=== PATIENT | female | born 1945 | race African-American/Black ===

== ENCOUNTER 2018-12-04 17:04 | Emergency (ER) | payer MEDICARE, MEDICAID ==
[2018-12-04 18:27] LABS: #Eosinphils 0.2 thou/uL (0.0-0.7); #Lymphocytes 2.4 thou/uL (1.20-3.40); #Monocytes 0.7 thou/uL (0.11-0.59); #Neutrophils 5.4 thou/uL (1.40-6.50); %Basophils 0.3 % (0.0-1.0); %Eosinophils 2.7 % (0.0-10.0); %Lymphocytes 27.1 % (21.0-51.0); %Monocytes 7.7 % (0.0-10.0); %Neutrophils 62.1 % (42.0-75.0); Hemoglobin 11.5 g/dL (12.0-16.0); Mean Corpuscular Hemoglobin 29.8 pg (27.0-31.0); Mean Corpuscular Volume 90.2 fL (78.0-98.0); Mean Platelet Volume 9.5 fL (7.4-10.4); Platelet Count 251 thou/uL (130-400); RBC Distribution Width 12.5 % (11.5-14.5); Red Blood Cell (RBC) Count 3.86 mill/uL (4.20-5.40); White Blood Cell (WBC) Count 8.7 thou/uL (4.8-10.8)
[2018-12-04 19:00] LABS: ALT (SGPT) 10 U/L (8-55); AST (SGOT) 14 U/L (5-34); Albumin 3.6 g/dL (3.4-4.8); Alkaline Phosphatase 91 U/L (40-150); Anion Gap 13 mmol/L (10-20); BUN (Urea Nitrogen) 13 mg/dL (9.8-20.1); Bilirubin, Total 0.4 mg/dL (0.2-1.2); Calc. Creatinine Clearance 0 mL/min (70-130); Calcium 9.4 mg/dL (7.8-10.44); Carbon Dioxide 24 mmol/L (23-31); Chloride 109 mmol/L (98-107); Estimated GFR-MDRD Greater than 90; Globulin 4.7 g/dL (2.4-3.5); Glucose 85 mg/dL (83-110); Potassium 3.3 mmol/L (3.5-5.1); Protein, Total 8.3 g/dL (6.0-8.3); Sodium 143 mmol/L (136-145)
--- NOTE | 2018-12-04 20:03 | RAD ---
CHEST ONE VIEW PORTABLE: 12/04/18 HISTORY: 73-year-old female with history of cough, cold, congestion, subjective fever, history of dementia. Heart size is within normal limits. There is some chronic changes in the right upper lobe as well as bilateral old granulomatous disease. There are some horizontal linear and parenchymal changes in the left base with some left hemidiaphragm elevation more prominent than on prior study raising concern f or subsegmental atelectasis or minimal left lower lobe pneumonia/pneumonitis. IMPRESSION: Horizontal linear and parenchymal changes in the left base having more the appearance of subsegmental atelectasis or mild pneumonitis. Chronic changes bilaterally. Atherosclerosis of the aorta with ecta darleen. POS: [facility]
== END 2018-12-04 19:32 | disposition home or self-care (01) ==
LOC: ERS 17:04
DX: J18.1 Lobar pneumonia, unspecified organism (principal); I10 Essential (primary) hypertension; J42 Unspecified chronic bronchitis; F03.90 Unspecified dementia, unspecified severity, without behavioral disturbance, psychotic disturbance, mood disturbance, and anxiety; F32.9 Major depressive disorder, single episode, unspecified; F17.210 Nicotine dependence, cigarettes, uncomplicated; Z79.899 Other long term (current) drug therapy
CPT/HCPCS: 36415; 71045; 80053; 85025; 87804

== ENCOUNTER 2019-08-13 10:26 | Inpatient (IN) | payer MEDICARE, MEDICAID ==
--- NOTE | 2019-08-13 11:06 | RAD ---
PORTABLE CHEST 1 VIEW: Date: 08/13/19 Time: 1041 hours HISTORY: Altered mental status. FINDINGS: Comparison made with exam of 12/04/18. The patient is rotated. The heart size is normal. The aorta is tortuous. No lobar consolidation, pneu mothoraces, or pleural effusions are seen. There is evidence of old granulomatous disease. IMPRESSION: No acute process. POS: [facility]
--- NOTE | 2019-08-13 11:19 | CT ---
CT HEAD WITHOUT CONTRAST: Date: 08/13/19 Axial tomograms obtained without IV enhancement. INDICATION: Mental status change. Comparison made to CT head of 05/13/17. FINDINGS: Moderate cortical volume loss is unchanged in appearance. Moderately severe chronic ischemic white ma tter changes again noted. Old infarct in the left frontal lobe with encephalomalacia is stable from t he prior exam. Evidence of old infarct in the inferior right cerebellum again noted. Evidence of lacu ralph infarction in left cerebellum. No evidence of acute cortical infarct. No mass or hemorrhage appar ent. Ischemic changes in the right basal ganglia extending to the subcortical insular cortex was present p reviously. IMPRESSION: Moderate to severe ischemic changes with old left frontal lobe infarct. No acute process apparent. POS: [facility]
[2019-08-13 11:44] LABS: #Eosinphils 0.1 thou/uL (0.0-0.7); #Lymphocytes 1.7 thou/uL (1.20-3.40); #Monocytes 0.3 thou/uL (0.11-0.59); #Neutrophils 3.2 thou/uL (1.40-6.50); %Basophils 0.7 % (0.0-1.0); %Eosinophils 1.6 % (0.0-10.0); %Lymphocytes 31.6 % (21.0-51.0); %Monocytes 5.7 % (0.0-10.0); %Neutrophils 60.4 % (42.0-75.0); Hemoglobin 13.9 g/dL (12.0-16.0); Mean Corpuscular HGB CONC 32.5 g/dL (32.0-36.0); Mean Corpuscular Hemoglobin 29.2 pg (27.0-31.0); Mean Corpuscular Volume 89.9 fL (78.0-98.0); Mean Platelet Volume 10.6 fL (7.4-10.4); Platelet Count 181 thou/uL (130-400); RBC Distribution Width 13.6 % (11.5-14.5); Red Blood Cell (RBC) Count 4.76 mill/uL (4.20-5.40); White Blood Cell (WBC) Count 5.3 thou/uL (4.8-10.8)
[2019-08-13 12:04] LABS: ALT (SGPT) 15 U/L (8-55); AST (SGOT) 19 U/L (5-34); Albumin 3.7 g/dL (3.4-4.8); Alkaline Phosphatase 104 U/L (40-150); Anion Gap 13 mmol/L (10-20); BUN (Urea Nitrogen) 17 mg/dL (9.8-20.1); Bilirubin, Total 0.4 mg/dL (0.2-1.2); Calc. Creatinine Clearance 0 mL/min (70-130); Calcium 9.4 mg/dL (7.8-10.44); Carbon Dioxide 26 mmol/L (23-31); Chloride 106 mmol/L (98-107); Estimated GFR-MDRD Greater than 90; Globulin 4.3 g/dL (2.4-3.5); Glucose 100 mg/dL (83-110); Potassium 3.8 mmol/L (3.5-5.1); Sodium 141 mmol/L (136-145)
[2019-08-13 12:11] LABS: Bacteria/HPF 3+ HPF (None Seen); Bilirubin Negative (Negative); Blood, Urine Negative (Negative); Clarity Turbid (Clear); Glucose, Urine (Dipstick) Normal (Negative); Leukocyte 500 Leu/uL (Negative); Nitrite 2+ (Negative); Protein, Urine (Dipstick) 10 mg/dL (Neg-Trace); RBC/HPF 0-3 HPF (0-3); Squamous Epithelial None Seen HPF (0-3); Urobilinogen Normal mg/dL (Less than 2); WBC/HPF 21-50 HPF (0-3)
[2019-08-13] MEDS ORDERED: cefTRIAXone\\ROCEPHIN 2 GM VIAL ONE (12:33)
--- NOTE | 2019-08-13 16:11 | PDOC.FPRHP ---
- History of Present Illness Chief Complaint: AMS History of Present Illness: Daisy Perez is a 74 year old F with a PMH of Dementia, HTN who was brought to the ED after APS was called by HH caregiver due to AMS and unkept living conditions. Patient states that she lives at home by herself and manages all of her own ADLs, including medication management. States that occasionally her brother will stay with her. HH caregiver came to check on patient and felt that she was not at her baseline mental status. HH caregiver called APS out of concern that patient was not able to care for herself and due to new changes in mental status. Patient is not a great historian and is A&O X2 on admission. She states that she has occasional urinary frequency and dysuria. Denies any fevers, chills, chest pain, dyspnea, n/v. In the ED, patient had CT that showed mod to severe ischemic changes with old infarct in left frontal lobe. She has a negative CXR. Vitals were wnl with exception of pt being hypertensive in the 160s systolic. Her UA was suggestive of UTI. Patient was given 2 g IV rocephin, CM was consulted in the ED. Urine cultures ordered. - Allergies/Adverse Reactions Allergies Allergy/AdvReac Type Severity Reaction Status Date / Time lisinopril Allergy Verified 08/04/18 14:56 sildenafil [From Viagra] Allergy Verified 08/04/18 14:56 - Home Medications Medication Instructions Recorded Confirmed Type Aspirin [Ecotrin Low Strength] 81 mg PO DAILY #30 tab 05/16/17 08/04/18 Rx Atorvastatin Calcium [Lipitor] 80 mg PO HS #30 tab 05/16/17 08/04/18 Rx Amlodipine [Norvasc] 1 tab PO QAM 08/04/18 History Donepezil HCl [Aricept] 1 tab PO QAM 08/04/18 History traMADol HCl [Tramadol HCl] 1 tab PO Q8HR PRN 08/04/18 History - History PMHx: Dementia-unknown baseline at this time, HTN PSHx: section, right knee surgery FHx: unknown Social: occasionally drinks, denies smoking or drug use - Review of Systems ROS unobtainable: due to mental status General: denies: fever/chills, weight/appetite/sleep changes Eyes: denies: eye pain, vision changes ENT: denies: nasal congestion, rhinorrhea Respiratory: denies: congestion, shortness of breath Cardiovascular: denies: chest pain, palpitation Gastrointestinal: reports: abdominal pain (suprapubic). denies: nausea, vomiting, diarrhea Genitourinary: reports: dysuria, polyuria Skin: denies: rashes, lesions Musculoskeletal: denies: pain, tenderness Neurological: denies: numbness, syncope, seizure, weakness Psychological: denies: anxiety, depression - Vital signs BP: [162/82] HR: [88] RR: [15] Tmax: [98.5] Pox: [98]% on [RA] Wt: [48 kg] - Physical Exam Constitutional: NAD, awake, alert and oriented -Constitutional: thin, malnourished HEENT: normocephalic and atraumatic, PERRLA, EOMI, conjunctiva clear, grossly normal hearing, normal nasal mucosa -HEENT: dry mucous membranes Neck: supple, FROM, no JVD Chest: no-tender to palpation, no lesions Heart: RRR, normal S1/S2, no murmurs/rubs/gallops Lungs: CTAB, no respiratory distress, good air movement, no rales/rhonchi Abdomen: soft, bowel sounds present, no masses/distention -Abdomen: mild suprapubic ttp Musculoskeletal: normal structure, normal tone Neurological: no focal deficit, CN II-XII intact, normal sensation Skin: no rash/lesions, capillary refill <2 seconds Psychiatric: normal mood and affect FMR H&P: Results - Labs Result Diagrams: 08/13/19 11:35 08/13/19 11:35 Lab results: WBC 5.3 thou/uL (4.8-10.8) 08/13/19 11:35 Hgb 13.9 g/dL (12.0-16.0) 08/13/19 11:35 Hct 42.8 % (36.0-47.0) 08/13/19 11:35 MCV 89.9 fL (78.0-98.0) 08/13/19 11:35 Plt Count 181 thou/uL (130-400) 08/13/19 11:35 Neutrophils % 60.4 % (42.0-75.0) 08/13/19 11:35 Sodium 141 mmol/L (136-145) 08/13/19 11:35 Potassium 3.8 mmol/L (3.5-5.1) 08/13/19 11:35 Chloride 106 mmol/L (98-107) 08/13/19 11:35 Carbon Dioxide 26 mmol/L (23-31) 08/13/19 11:35 BUN 17 mg/dL (9.8-20.1) 08/13/19 11:35 Creatinine 0.76 mg/dL (0.6-1.1) 08/13/19 11:35 Glucose 100 mg/dL (83-110) 08/13/19 11:35 Calcium 9.4 mg/dL (7.8-10.44) 08/13/19 11:35 Total Bilirubin 0.4 mg/dL (0.2-1.2) 08/13/19 11:35 AST 19 U/L (5-34) 08/13/19 11:35 ALT 15 U/L (8-55) 08/13/19 11:35 Alkaline Phosphatase 104 U/L (40-150) 08/13/19 11:35 Serum Total Protein 8.0 g/dL (6.0-8.3) 08/13/19 11:35 Albumin 3.7 g/dL (3.4-4.8) 08/13/19 11:35 Urine Ketones Negative mg/dL (Negative) 08/13/19 11:35 Urine Blood Negative (Negative) 08/13/19 11:35 Urine Nitrite 2+ (Negative) A 08/13/19 11:35 Ur Leukocyte Esterase 500 Summer/uL (Negative) A 08/13/19 11:35 Urine RBC 0-3 HPF (0-3) 08/13/19 11:35 Urine WBC 21-50 HPF (0-3) A 08/13/19 11:35 Ur Squamous Epith Cells None Seen HPF (0-3) 08/13/19 11:35 Urine Bacteria 3+ HPF (None Seen) A 08/13/19 11:35 - Radiology Interpretation CT scan - head Status: image reviewed by me, report reviewed by me (moderate to severe ischemic changes with old left frontal lobe infarct) Chest x-ray Status: image reviewed by me, report reviewed by me (no acute process) FMR H&P: A/P - Problem List (1) Altered mental status Current Visit: Yes Status: Acute Code(s): R41.82 - ALTERED MENTAL STATUS, UNSPECIFIED (2) UTI (urinary tract infection) Current Visit: Yes Status: Acute (3) Physical deconditioning Current Visit: Yes Status: Chronic Code(s): R53.81 - OTHER MALAISE (4) Dementia Current Visit: Yes Status: Chronic Code(s): F03.90 - UNSPECIFIED DEMENTIA WITHOUT BEHAVIORAL DISTURBANCE (5) Hypertension Current Visit: Yes Status: Chronic Code(s): I10 - ESSENTIAL (PRIMARY) HYPERTENSION (6) History of CVA (cerebrovascular accident) Current Visit: Yes Status: Chronic Code(s): Z86.73 - PRSNL HX OF TIA (TIA), AND CEREB INFRC W/O RESID DEFICITS - Plan 1) AMS - admit to inpatient medical - possibly 2/2 uti - will consider alternative process, consider MRI brain - UA suggestive of UTI, urine culture drawn - s/p 2 g rocephin in ED - continue empiric antibiotics - IVFs, NS @ 90 ml/hr - continue to monitor mental status - poor living conditions, question ability to take care of self/managed ADLs on her own - consulted PT/OT and CM 2) UTI/Cystitis - likely cause of AMS - continue empiric Abx until culture results 3) HTN - continue home meds 4) Dementia - continue home meds - unsure of baseline, will need to communicate with provider 5) hx of CVA - asa and statin Code Status: FULL CODE Diet: Act: Amb with assist, fall precautions Dispo: Anticipate hospital stay >48 hours, pt will likely need placement
[2019-08-13] MEDS ORDERED: Ondansetron ODT 4 MG TAB SL PRN (16:13)
[2019-08-13] MEDS ORDERED: Acetaminophen 325 MG TAB PO PRN ×2 (16:13→16:16)
[2019-08-13] MEDS ORDERED: Ondansetron PF 4 MG/2 ML Vial IVP PRN (16:13)
[2019-08-13 16:19] VITALS: BMI 17.8
[2019-08-13] MEDS: Sodium Chloride 0.9% 1,000 ML IV SCH (16:45)
[2019-08-13] MEDS ORDERED: Labetalol HCl 100 MG/20 ML VIAL SLOW IVP PRN (17:30)
[2019-08-13] MEDS ORDERED: Amlodipine 5 MG TAB PO SCH (18:15)
[2019-08-13] MEDS: Atorvastatin Calcium 20 MG TAB PO SCH (19:44)
[2019-08-13] MEDS: Famotidine 20 MG TAB PO SCH (19:44)
[2019-08-14] MEDS: Sodium Chloride 0.9% 1,000 ML IV SCH ×4 (03:36→23:19)
[2019-08-14 05:05] LABS: #Eosinphils 0.1 thou/uL (0.0-0.7); #Lymphocytes 2.3 thou/uL (1.20-3.40); #Monocytes 0.5 thou/uL (0.11-0.59); #Neutrophils 3.1 thou/uL (1.40-6.50); %Basophils 0.4 % (0.0-1.0); %Eosinophils 1.4 % (0.0-10.0); %Lymphocytes 38.6 % (21.0-51.0); %Neutrophils 51.5 % (42.0-75.0); Hemoglobin 11.4 g/dL (12.0-16.0); Mean Corpuscular HGB CONC 32.9 g/dL (32.0-36.0); Mean Corpuscular Hemoglobin 29.5 pg (27.0-31.0); Mean Corpuscular Volume 89.7 fL (78.0-98.0); Mean Platelet Volume 10.6 fL (7.4-10.4); Platelet Count 177 thou/uL (130-400); RBC Distribution Width 13.4 % (11.5-14.5); Red Blood Cell (RBC) Count 3.87 mill/uL (4.20-5.40); White Blood Cell (WBC) Count 6.1 thou/uL (4.8-10.8)
[2019-08-14 05:26] LABS: Anion Gap 10 mmol/L (10-20); BUN (Urea Nitrogen) 15 mg/dL (9.8-20.1); Calc. Creatinine Clearance 56 mL/min (70-130); Calcium 8.4 mg/dL (7.8-10.44); Carbon Dioxide 22 mmol/L (23-31); Chloride 108 mmol/L (98-107); Estimated GFR-MDRD Greater than 90; Glucose 89 mg/dL (83-110); Potassium 3.4 mmol/L (3.5-5.1); Sodium 137 mmol/L (136-145)
--- NOTE | 2019-08-14 06:50 | PDOC.FM ---
- Subjective Subjective: Pt resting comfortably. Denies any pain or discomfort. No new complaints at this time. No fever/chills. - Objective MAR Reviewed: Yes Vital Signs & Weight: Vital Signs (12 hours) Temp Pulse Resp BP Pulse Ox 08/14/19 05:12 99.2 F 92 16 168/65 H 99 08/14/19 00:44 99.6 F 83 18 182/80 H 98 08/13/19 20:00 98.8 F 89 18 150/75 H 100 Weight Weight 48.5 kg I&O: 08/12/19 08/13/19 08/14/19 06:59 06:59 06:59 Intake Total 949 Balance 949 Result Diagrams: 08/14/19 04:26 08/14/19 04:26 Phys Exam - Physical Examination Constitutional: NAD HEENT: moist MMs, sclera anicteric Neck: no JVD, supple Respiratory: no wheezing, clear to auscultation bilateral Cardiovascular: RRR, no significant murmur Gastrointestinal: soft, non-tender Musculoskeletal: pulses present Neurological: normal sensation, moves all 4 limbs Psychiatric: normal affect Skin: no rash, normal turgor Dx/Plan (1) Altered mental status Code(s): R41.82 - ALTERED MENTAL STATUS, UNSPECIFIED Status: Acute (2) UTI (urinary tract infection) Status: Acute (3) Dementia Code(s): F03.90 - UNSPECIFIED DEMENTIA WITHOUT BEHAVIORAL DISTURBANCE Status: Chronic (4) Hypertension Code(s): I10 - ESSENTIAL (PRIMARY) HYPERTENSION Status: Chronic (5) Physical deconditioning Code(s): R53.81 - OTHER MALAISE Status: Chronic - Plan Plan: AMS, likely 2/2 UTI and delirium A- Likely 2/2 to delirium from UTI. UA suggestive of UTI, urine culture drawn. s /p 2 g rocephin in ED. P- continue empiric antibiotics -IVFs, NS @ 90 ml/hr -continue to monitor mental status Dementia with physical deconditioning A- poor living conditions, question ability to take care of self/managed ADLs on her own. consulted PT/OT and CM- continue home meds P- f/u CM recs for placement -PT/OT HTN -continue home meds hx of CVA -home asa and statin Code Status: FULL CODE Diet: HH Dispo: pt will likely need placement Addendum - Attending - Attending Attestation Date/Time: 08/14/19 [id number] I personally evaluated the patient and discussed the management with Dr. Crenshaw at 8 am. I agree with the History, Examination, Assessment and Plan documented above with any addition or exceptions noted below. AMS secondary to UTI- continue rocephin daily and await sensitivities. HTN- start amlodipine CM for placement
[2019-08-14] MEDS ORDERED: Potassium Chloride 20 MEQ TAB PO SCH (07:00)
[2019-08-14] MEDS: Amlodipine 5 MG TAB PO SCH (08:03)
[2019-08-14] MEDS: Donepezil HCl 10 MG TAB PO SCH (08:03)
[2019-08-14] MEDS: Enoxaparin Sodium 40 MG/0.4 ML SYRINGE SC SCH (08:03)
[2019-08-14] MEDS: Famotidine 20 MG TAB PO SCH ×2 (08:12→21:03)
[2019-08-14] MEDS ORDERED: Prevnar 13-Val Conj/PF 0.5 ML SYRINGE IM ONE (09:00)
[2019-08-14] MEDS: cefTRIAXone\\ROCEPHIN 1 GM in Sodium Chloride 0.9% 100 ML IVPB SCH (11:18)
[2019-08-14] MEDS: Atorvastatin Calcium 20 MG TAB PO SCH (21:03)
[2019-08-15 07:34] LABS: Anion Gap 9 mmol/L (10-20); BUN (Urea Nitrogen) 13 mg/dL (9.8-20.1); Calc. Creatinine Clearance 55 mL/min (70-130); Calcium 8.7 mg/dL (7.8-10.44); Carbon Dioxide 25 mmol/L (23-31); Chloride 106 mmol/L (98-107); Estimated GFR-MDRD Greater than 90; Glucose 85 mg/dL (83-110); Potassium 3.7 mmol/L (3.5-5.1); Sodium 136 mmol/L (136-145)
--- NOTE | 2019-08-15 07:39 | PDOC.FM ---
- Subjective Subjective: Pt reports good sleep overnight. No pain anywhere, no new problems, no concerns or complaints. - Objective Vital Signs & Weight: Vital Signs (12 hours) Temp Pulse Resp BP Pulse Ox 08/14/19 20:00 98.0 F 85 20 164/75 H 99 Weight Admit Weight 48.5 kg Weight 48.5 kg I&O: 08/14/19 08/15/19 08/16/19 06:59 06:59 06:59 Intake Total 949 1896 Balance 949 1896 Result Diagrams: 08/14/19 04:26 08/15/19 07:04 Phys Exam - Physical Examination Constitutional: NAD HEENT: moist MMs, sclera anicteric Neck: supple Respiratory: no wheezing, clear to auscultation bilateral Cardiovascular: RRR, no significant murmur Gastrointestinal: soft, non-tender Musculoskeletal: pulses present Neurological: normal sensation Psychiatric: normal affect Skin: no rash, normal turgor Dx/Plan (1) Altered mental status Code(s): R41.82 - ALTERED MENTAL STATUS, UNSPECIFIED Status: Acute (2) UTI (urinary tract infection) Status: Acute (3) Dementia Code(s): F03.90 - UNSPECIFIED DEMENTIA WITHOUT BEHAVIORAL DISTURBANCE Status: Chronic (4) Hypertension Code(s): I10 - ESSENTIAL (PRIMARY) HYPERTENSION Status: Chronic (5) Physical deconditioning Code(s): R53.81 - OTHER MALAISE Status: Chronic - Plan Plan: AMS, likely 2/2 UTI and delirium A- Likely 2/2 to delirium from UTI. UA suggestive of UTI, urine culture drawn. s /p 2 g rocephin in ED. P- continue empiric antibiotics -DC IVF, encourage PO intake -continue to monitor mental status Dementia with physical deconditioning A- poor living conditions, question ability to take care of self/managed ADLs on her own. consulted PT/OT and CM- continue home meds P- f/u CM recs for placement -PT/OT HTN -continue home meds, may increase regimen hx of CVA -home asa and statin Code Status: FULL CODE Diet: HH Dispo: pt will likely need placement Addendum - Attending - Attending Attestation Date/Time: 08/15/19 [id number] I personally evaluated the patient and discussed the management with Dr. Dillingham at 0755. I agree with the History, Examination, Assessment and Plan documented above with any addition or exceptions noted below. Providenci stuartii UTI- continue Rocephin Deconditioning- PT eval and CM for SNF placement.
[2019-08-15] MEDS: Donepezil HCl 10 MG TAB PO SCH (08:21)
[2019-08-15] MEDS: Amlodipine 5 MG TAB PO SCH (08:21)
[2019-08-15] MEDS: Enoxaparin Sodium 40 MG/0.4 ML SYRINGE SC SCH (08:22)
[2019-08-15] MEDS: Famotidine 20 MG TAB PO SCH ×2 (08:22→20:01)
[2019-08-15] MEDS: cefTRIAXone\\ROCEPHIN 1 GM in Sodium Chloride 0.9% 100 ML IVPB SCH (12:05)
[2019-08-15] MEDS: Atorvastatin Calcium 20 MG TAB PO SCH (20:01)
[2019-08-16] MEDS: Amlodipine 5 MG TAB PO SCH (08:25)
[2019-08-16] MEDS: Famotidine 20 MG TAB PO SCH ×2 (08:26→20:49)
[2019-08-16] MEDS: Enoxaparin Sodium 40 MG/0.4 ML SYRINGE SC SCH (08:26)
[2019-08-16] MEDS: Donepezil HCl 10 MG TAB PO SCH (08:26)
--- NOTE | 2019-08-16 09:44 | PDOC.FM ---
- Subjective Subjective: NAEO. Patient denies any pain or issues with fever/chills, N/V/D or constipation. A&O x2 this AM. - Objective MAR Reviewed: Yes Vital Signs & Weight: Vital Signs (12 hours) Temp Pulse Resp BP Pulse Ox 08/16/19 08:21 98.9 F 73 15 151/76 H 97 Weight Admit Weight 48.5 kg Weight 48.5 kg I&O: 08/15/19 08/16/19 08/17/19 06:59 06:59 06:59 Intake Total 1896 840 Output Total 1 Balance 1896 839 Result Diagrams: 08/14/19 04:26 08/15/19 07:04 Phys Exam - Physical Examination Constitutional: NAD HEENT: moist MMs, sclera anicteric Neck: supple, full ROM Respiratory: no wheezing, no rales, no rhonchi, clear to auscultation bilateral Cardiovascular: RRR, no significant murmur Gastrointestinal: soft, non-tender, no distention Neurological: non-focal, moves all 4 limbs Psychiatric: normal affect Deviation from normal: oriented to person and place not time Skin: no rash, normal turgor Dx/Plan (1) UTI (urinary tract infection) Status: Acute (2) Dementia Code(s): F03.90 - UNSPECIFIED DEMENTIA WITHOUT BEHAVIORAL DISTURBANCE Status: Chronic (3) History of CVA (cerebrovascular accident) Code(s): Z86.73 - PRSNL HX OF TIA (TIA), AND CEREB INFRC W/O RESID DEFICITS Status: Chronic (4) Hypertension Code(s): I10 - ESSENTIAL (PRIMARY) HYPERTENSION Status: Chronic (5) Physical deconditioning Code(s): R53.81 - OTHER MALAISE Status: Chronic - Plan Plan: AMS, likely 2/2 UTI and delirium, resolved - Likely 2/2 to delirium from UTI. UA suggestive of UTI & Cx + for >100k cfus or Provedencia stuartii sensitive to rocephin. - continue IV abx while inpatient - continue to monitor mental status closely Dementia with physical deconditioning - poor living conditions, question ability to take care of self/managed ADLs on her own. consulted PT/OT and CM. Pending CM recs for placement. - continue home meds & PT/OT HTN -continue home meds but titrate PRN if SBP consistently >160 hx of CVA -Continue home asa and statin Code Status: FULL CODE Diet: HH Dispo: Pending CM recs for placement but will also f/u w/ APS today regarding patient's case. Addendum - Attending - Attending Attestation Date/Time: 08/17/19 [id number] I personally evaluated the patient and discussed the management with Dr. Roque I agree with the History, Examination, Assessment and Plan documented above with any addition or exceptions noted below. 74 yo female with hx of dementia admitted for metabolic encephalopathy. HD# 3 Patient now at baseline. Able to respond. Denies pain. VS, labs, imaging reviewed. Oriented to person and place. NAD. Otherwise agree with PE as documented by resident. 1. Acute metabolic encephalopathy: Resolved. 2. Dementia: Etiology unknown. Not able to perform ADLS. Needs placement. CM following. 3. SIRS 2/2 UTI: Resolved. 4. UTI: Cx reviewed. Switch to oral antibiotics. Has received 3 days of cephalosporin. Will review previous hx and determine treatment course. 5. HTN: Adjust meds as needed. 6. Physical d-conditioning: Unable to participate with PT. Awaiting placement. Ok to transition to oral antibx if further treatment needed. Jessica
[2019-08-16] MEDS: cefTRIAXone\\ROCEPHIN 1 GM in Sodium Chloride 0.9% 100 ML IVPB SCH (14:05)
--- NOTE | 2019-08-16 15:37 | PQF ---
CLINICAL DOCUMENTATION IMPROVEMENT CLARIFICATION FORM: ICD-10 Updated PLEASE DO AN ADDENDUM TO THE PROGRESS NOTE WITH ANY DOCUMENTATION UPDATES OR ADDITIONS AND CARRY THROUGH TO DC SUMMARY. THANK YOU. Date: 08/16/2019 ; 08/17/2019; 08/18/2019 ATTN: Dr. Roque/ Attending Dr. Schumacher Please exercise your independent, professional judgment in responding to the clarification form. Clinical indicators are provided on the bottom of this form for your review Please check appropriate box(s): [ x ] Underweight without malnutrition [ ] Other malnutrition (please specify) [ ] Other diagnosis [ ] Unable to determine In addition, please specify: Present on Admission (POA): [ x ] Yes [ ] No [ ] Unable to determine CLINICAL INDICATORS - SIGNS / SYMPTOMS / LABS Senior Tax Accountant Assessment 08/14: for MST 1 (eating poorly) BMI 17.8 -4.9 % wt loss x 2 yrs per EMR Nutrition DX: Underweight related to dementia, unable to care for needs RISKS: H&P 08/13: PMH of Dementia, HTN. AMS. UTI. Physical deconditioning. poor living conditions. TREATMENT: Order 08/13: Senior Tax Accountant consult for MST 1 (eating poorly) BMI 17.8 Order 08/14: Supplement: Ensure Enlive Moderate Malnutrition (in acute illness) Energy Intake: <75% of estimated energy requirement for > 7 days Weight Loss: 1-2%/1 week; 5%/ 1 month; 7.5%/3 months Other: mild body fat loss; mild muscle mass loss; mild fluid accumulation; Severe Malnutrition (in acute illness) Energy Intake: < 50% of estimated energy requirement for > 5 days Weight Loss: >1-2%/1 week; >5%/1 month; >7.5%/3 months Other: moderate body fat loss; moderate muscle mass loss; moderate- severe fluid accumulation; measurably reduced cafeteria or lunchroom checker strength Moderate Malnutrition (in chronic illness) Energy Intake: <75% of estimated energy requirement for >1 month Weight Loss: 5%/1 month; 7.5%/3 months; 10%/6 months; 20%/1 year Other: mild body fat loss; mild muscle mass loss; mild fluid accumulation Severe Malnutrition (in chronic illness) Energy Intake: <75% of estimated energy requirement for >1 month Weight Loss: >5%/1 month; >7.5%/3 months; >10%/6 months; >20%/1 year Other: severe body fat loss; severe muscle mass loss; severe fluid accumulation; measurably reduced cafeteria or lunchroom checker strength Thank you, Jennifer (This form is maintained as a part of the permanent medical record) 2015 [employer]. All Rights Reserved Jennifer Dias RN, BSN [email or web address] Office: [phone] [facility]
[2019-08-16] MEDS: Atorvastatin Calcium 20 MG TAB PO SCH (20:49)
--- NOTE | 2019-08-17 06:44 | PDOC.FM ---
- Subjective Subjective: NAEO. Patient has no complaints on exam this AM. Denies any pain, fever/chills, N/V/D or constipation. - Objective MAR Reviewed: Yes Vital Signs & Weight: Vital Signs (12 hours) Temp Pulse Resp BP BP Pulse Ox 08/17/19 00:25 97.9 F 79 18 119/66 99 08/16/19 20:00 98.2 F 70 18 153/71 H 97 Weight Admit Weight 48.5 kg Weight 48.5 kg I&O: 08/15/19 08/16/19 08/17/19 06:59 06:59 06:59 Intake Total 1896 840 Output Total 1 Balance 1896 839 Result Diagrams: 08/14/19 04:26 08/15/19 07:04 Phys Exam - Physical Examination Constitutional: NAD HEENT: moist MMs, sclera anicteric Neck: supple, full ROM Respiratory: no wheezing, no rales, no rhonchi, clear to auscultation bilateral Cardiovascular: RRR, no significant murmur Gastrointestinal: soft, non-tender, no distention Musculoskeletal: no edema Neurological: non-focal, moves all 4 limbs Psychiatric: normal affect Deviation from normal: A&O x2 at baseline Skin: no rash Dx/Plan (1) UTI (urinary tract infection) Status: Acute (2) Dementia Code(s): F03.90 - UNSPECIFIED DEMENTIA WITHOUT BEHAVIORAL DISTURBANCE Status: Chronic (3) History of CVA (cerebrovascular accident) Code(s): Z86.73 - PRSNL HX OF TIA (TIA), AND CEREB INFRC W/O RESID DEFICITS Status: Chronic (4) Hypertension Code(s): I10 - ESSENTIAL (PRIMARY) HYPERTENSION Status: Chronic (5) Physical deconditioning Code(s): R53.81 - OTHER MALAISE Status: Chronic - Plan Plan: UTI 2/2 providencia stuartii - UA suggestive of UTI & Cx + for >100k cfus or Provedencia stuartii, sensitive to rocephin. - Transition to PO cephalosporin today to be continued for 7 days to complete a 10 day course. Dementia with physical deconditioning - poor living conditions, question ability to take care of self/managed ADLs on her own. consulted PT/OT and CM. Pending CM recs for placement. - continue home meds & PT/OT HTN -continue home meds but titrate PRN if SBP consistently >160 hx of CVA -Continue home asa and statin AMS, likely 2/2 UTI and delirium, resolved - Likely 2/2 to delirium from UTI as mentation improved after initiation of abx treatment - continue to monitor mental status closely Code Status: FULL CODE Diet: HH Dispo: Pending CM recs for placement but will also f/u w/ APS today regarding patient's case. Addendum - Attending - Attending Attestation Date/Time: 08/17/19 [id number] I personally evaluated the patient and discussed the management with Dr. Roque I agree with the History, Examination, Assessment and Plan documented above with any addition or exceptions noted below. 74 yo female with hx of dementia admitted for metabolic encephalopathy. HD# 4 No acute events overnight. VS, labs, imaging reviewed. Oriented to person and place. NAD. Otherwise agree with PE as documented by resident. 1. Acute metabolic encephalopathy: Resolved. 2. Dementia: Etiology unknown but likely vascular. Not able to perform ADLS. Awaiting approval for skilled. 3. SIRS 2/2 UTI: Resolved. 4. UTI: Rocephin x3 days. Give fosfomycin for completion of treatment. 5. HTN: Adjust meds as needed. 6. Physical de-conditioning: Unable to participate with PT. Awaiting placement. Ok to d/c once secured. Jessica
[2019-08-17] MEDS: Famotidine 20 MG TAB PO SCH (08:33)
[2019-08-17] MEDS: Amlodipine 5 MG TAB PO SCH (08:33)
[2019-08-17] MEDS: Enoxaparin Sodium 40 MG/0.4 ML SYRINGE SC SCH (08:33)
[2019-08-17] MEDS: Donepezil HCl 10 MG TAB PO SCH (08:33)
[2019-08-17] MEDS ORDERED: Cephalexin 250 MG CAP PO SCH (09:00)
[2019-08-17 13:26] VITALS: BP 133/67; TEMP 97.4
--- NOTE | 2019-08-18 13:24 | DIS ---
DATE OF ADMISSION: 08/13/2019 DATE OF DISCHARGE: 08/17/2019 RESIDENT: Stacy Roque MD ADMITTING ATTENDING: Avel Jacobo MD. DISCHARGE ATTENDING: Nicki Cross MD CONSULTS: None. PROCEDURES: 1. Chest x-ray on 08/13/2019, which showed no acute process, but evidence of old granulomatous disease. 2. Brain CT on 08/13/2019, which showed moderate to severe ischemic changes with old left frontal lobe infarct with no acute process apparent. PRIMARY DIAGNOSES: 1. Acute encephalopathy secondary to urinary tract infection. 2. Dementia with inability to care for self and manage ADLs independently. SECONDARY DIAGNOSES: 1. Hypertension. 2. Dementia. 3. History of cerebrovascular accident. DISCHARGE MEDICATIONS: 1. Amlodipine 5 mg p.o. q.a.m. 2. Aricept 10 mg p.o. daily. 3. Atorvastatin 20 mg p.o. at bedtime. 4. Acetaminophen 650 mg p.o. q.4 hours p.r.n. 5. Keflex 500 mg p.o. q.12 hours for 13 days. DISCONTINUED MEDICATIONS: None. HOSPITAL COURSE: The patient is a 74-year-old female with a past medical history significant for dementia and hypertension, who was brought into the emergency department after APS was called by her home health caregiver due to altered mental status and unkempt living conditions. The patient is currently residing at home alone and manages all of her own ADLs including her own medications. Home health caregiver reported that when she went to check on the patient, she was not at her baseline mental status and therefore, the patient brought to the emergency department for further evaluation. In the ED, the patient had a head CT and chest x-ray, both of which did not show any acute process. Vitals were within normal limits with the exception of the patient being hypertensive with a systolic blood pressure in the 160s. Routine lab work was obtained including CBC, CMP, and urinalysis, which were negative with the exception of the urinalysis, which was positive for nitrites, leukocyte esterase, wbc's, and bacteria suggestive of a UTI. Urine culture was therefore obtained as well and the patient was started on IV Rocephin in the emergency department, which was continued on the floor. The following morning, the patient's mentation had not improved much, but over the course of her hospitalization, she returned to her baseline of being oriented to person and place only. Prior to discharge, she was transitioned to p.o. antibiotics with cefdinir, which was continued for 13 additional days to complete a total of 14-day course. Regarding the patient's dementia and inability to care for self, Case Management was consulted to assist the family with placement of the patient as it was deemed unsafe for her to return home, living by herself. Arrangements were made to have the patient transitioned from the hospital to [facility] and she was accepted there on 08/17/2019. Case Management reported that the plans were for the patient to be transferred from [facility] to a permanent long-term care facility per the family's wishes. DISPOSITION: Stable. DISCHARGE INSTRUCTIONS: 1. Location: [facility]. 2. Diet: Heart healthy diet. 3. Activity: As tolerated. 4. Followup: The patient was instructed to follow up with her primary care physician, Dr. Stepan Arteaga within 2 weeks of discharge. Job ID: [id number]
--- NOTE | 2019-08-19 04:04 | PQF ---
[employer] Machine Operator Crystal Reports Winform Viewer HARINI MCKEON RAE ANN [id number] CLINICAL DOCUMENTATION CLARIFICATION FORM: POST DISCHARGE Addendum to original discharge summary date: ____ Late entry note date: __ DATE: 08/19/19 ATTN: Corinna Ledesma Please exercise your independent, professional judgment in responding to the clarification form. Clinical indicators are provided on the bottom of this form for your review Please check appropriate box(s): Can you please further specify the diagnosis based on the clinical indicators below? [ X ] Encephalopathy: Type: [ X ] Acute [ ] Subacute [ ] Chronic Etiology: [ X ] Metabolic [ ] Toxic [ ] Hepatic with Coma [ ] Unspecified [ ] in the setting of underlying dementia [ ] Other (please specify) [ ] Other diagnosis please specify [ ] Unable to determine In addition, please specify: Present on Admission (POA): [X ] Yes [ ] No [ ] Unable to determine For continuity of documentation, please document condition throughout progress notes and discharge summary. Thank You. CLINICAL INDICATORS - SIGNS / SYMPTOMS / LABS ED 08/13 p.2- "unsteady gait" HP 08/13 p.1- "was not at her baseline mental status" HP 08/13 p.4- "altered mental status" HP 08/13 p.4-"physical deconditioning" PN 08/14 Avel Crenshaw p.3- "AMS secondary to UTI" RISK FACTORS Hx of Dementia- H and P 08/13 pg.1 Hypertension- H and P 08/13 pg.1 UTI- H and P 08/13 pg.4 TREATMENTS: IV Fluids- MAR 08/13 was given 2 g IV Rocephin-HP 08/13 p.1 continue to monitor for mental status- HP 08/13 p.5 (This form is maintained as a part of the permanent medical record) 2015 [employer], [employer] All Rights Reserved Sigifredo [email or web address] [not provided] MTDD
--- NOTE | 2019-08-19 20:56 | PQF ---
[employer] Supervisor Crystal Reports Winform Viewer HARINI MCKEON RAE ANN MD [id number] [id number] CLINICAL DOCUMENTATION CLARIFICATION FORM: POST DISCHARGE Addendum to original discharge summary date: ____ Late entry note date: __ DATE: 08/19/19 ATTN: Corinna Stovall Please exercise your independent, professional judgment in responding to the clarification form. Clinical indicators are provided on the bottom of this form for your review Can you please specify the diagnosis base on the below indicators? Please check appropriate box(es): [ ] Sepsis due to UTI [ X ] Localized infection without sepsis [ ] Other diagnosis please specify [ ] Unable to determine In addition, please specify: Present on Admission (POA): [X ] Yes [ ] No [ ] Unable to determine For continuity of documentation, please document condition throughout progress notes and discharge summary. Thank You. CLINICAL INDICATORS - SIGNS / SYMPTOMS / LABS H and P 08/13 pg.1- "she has not at her baseline mental status" H and P 08/13 pg.1- "Her UA suggestive of UTI" H and P 08/13 pg.2- "Thin, malnourished" H and P 08/13 pg.1- "Vital signs: BP 162/82, HR 88, RR 15, Tmax 98.5" Physician documentation 08/19 pg.1- "Acute Metabolic Encephalopathy" Micro biology- "rine culture: Providencia stuartii" RISK FACTORS UTI- H and P pg.5 74 years old F- H and P pg.1 Hypertension- H and P pg.5 Dementia- H and P pg.5 TREATMENTS: IV Fluids- JAN 30 Urine culture- Microbiology Ceftriaxone 2gm IV- JAN 30 Cephalexin 500mg PO- JAN 30 (This form is maintained as a part of the permanent medical record) 2014 [employer], [employer]. All Rights Reserved [email or web address] [email or web address] [not provided] MTDD
== END 2019-08-17 15:39 | DRG 689 ==
LOC: ERS 10:26 → T4-A 16:04
PROVIDERS: ADMIT Family Medicine; ATTEND Family Medicine
DX: N39.0 Urinary tract infection, site not specified (principal); G93.41 Metabolic encephalopathy; Z68.1 Body mass index [BMI] 19.9 or less, adult; F03.90 Unspecified dementia, unspecified severity, without behavioral disturbance, psychotic disturbance, mood disturbance, and anxiety; I10 Essential (primary) hypertension; J42 Unspecified chronic bronchitis; R63.6 Underweight; Z79.899 Other long term (current) drug therapy; Z88.8 Allergy status to other drugs, medicaments and biological substances; Z79.82 Long term (current) use of aspirin; Z86.73 Personal history of transient ischemic attack (TIA), and cerebral infarction without residual deficits
CPT/HCPCS: 36415; 51701; 70450; 71045; 80048; 80053; 81003; 81015; 84484; 85025; 87077; 87086; 87186; 96365; A4353; J0696; J1650; J3490